=== PATIENT | male | born 1970 | race Caucasian/White ===

== ENCOUNTER 2020-06-08 14:46 | Emergency (ER) | payer OTHER ==
--- NOTE | 2020-06-08 16:05 | EDM.PDOC ---
ED HPI GENERAL MEDICAL PROBLEM - General Chief Complaint: General Stated Complaint: LIGHTHEADED/DIZZY/LETHARGIC Time Seen by Provider: 06/08/20 16:04 Source of Information: Reports: Patient History Limitations: Reports: No Limitations - History of Present Illness INITIAL COMMENTS - FREE TEXT/NARRATIVE: 50-year-old male presents to the ED in the accompaniment of his . His are working in [employer] for the summer. He states for the last week he is felt increasing fatigue but much worse today. After eating his dinner today he stood up and felt very dizzy lightheaded like he was going to pass out. No vertigo symptoms. He did have to sit down but felt very unwell and coworkers identified that he seemed to be quite white and pallid. Patient rarely sees a doctor as he is usually enjoyed good health. He is currently on no medications. 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 Denies any recent nausea vomiting or headaches. No excessive thirst or polyuria. No chest pain. He states he has had 3 COVID tests as they are free in [place] and all have been negative. States he feels very fatigued in particular in the mornings has difficulty getting up and ready for the day which was not usually the case. There is been a tremendous change in his energy levels over the last week to 10 days. He denies any fever or chills. Appetite has been fair and he feels he been taking in adequate nutrition. Onset: Gradual Onset Date: 05/29/20 Duration: Day(s):, Getting Worse Location: Reports: Generalized (Neurolysed fatigue and sense of weakness with lightheadedness today near collapse.) Quality: Reports: Other Severity: Moderate (Overwhelming fatigue) Improves with: Reports: None Worsens with: Reports: None Context: Denies: Activity, Exercise, Lifting, Sick Contact, Trauma, Other Associated Symptoms: Reports: Malaise, Weakness. 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 [No Known Home Meds] 06/08/20 [History] Past Medical History - Past Surgical History Musculoskeletal Surgical History: Reports: ORIF, Shoulder Surgery (This was done because of recurrent dislocations of the shoulder.) Social & Family History - Tobacco Use Smoking Status *Q: Never Smoker - Living Situation & Occupation Living situation: Reports: Occupation: Employed ED ROS GENERAL - Review of Systems Review Of Systems: See Below Constitutional: Reports: Malaise, Weakness, Fatigue. Denies: Fever, Chills, Decreased Appetite, Weight Loss HEENT: Reports: Glasses Respiratory: Reports: No Symptoms Cardiovascular: Reports: No Symptoms Endocrine: Reports: No Symptoms GI/Abdominal: Reports: No Symptoms : Reports: No Symptoms Musculoskeletal: Reports: Other (Usual aches and pains right shoulder low back) Neurological: Reports: Confusion ( commented today when she spoke to him on the phone that he seemed to be a bit confused or having difficulty getting out the words that he wanted to say. This is when he was feeling quite dizzy and lightheaded.), Dizziness, Weakness. Denies: Headache, Numbness, Syncope, Tingling, Tremors, Trouble Speaking, Difficulty Walking, Change in Speech, Gait Disturbance Psychiatric: Reports: No Symptoms Hematologic/Lymphatic: Reports: No Symptoms Immunologic: Reports: No Symptoms ED EXAM, GENERAL - Physical Exam Exam: See Below Exam Limited By: No Limitations General Appearance: Alert, WD/WN, No Apparent Distress, Other (States he feels better since he has been resting here. Temperature is 36.6. Heart rate was 60 and sinus respiratory was 18 BP was 148/97 with O2 sats of 98% on room air.) Eye Exam: Bilateral Eye: Normal Inspection (No blepharal pallor or scleral icterus.), PERRL Ears: Normal TMs Throat/Mouth: Normal Inspection, Normal Lips, Normal Teeth, Normal Oropharynx Head: Atraumatic, Normocephalic Neck: Normal Inspection, Supple, Non-Tender, Full Range of Motion. No: Carotid Bruit, Lymphadenopathy (L), Lymphadenopathy (R) Respiratory/Chest: No Respiratory Distress, Lungs Clear, Normal Breath Sounds, No Accessory Muscle Use, Chest Non-Tender Cardiovascular: Normal Peripheral Pulses, Regular Rate, Rhythm, No Edema, No Gallop, No JVD, No Murmur, No Rub Peripheral Pulses: 2+: Posterior Tibial (L), Posterior Tibial (R), Dorsalis Pedis (L), Dorsalis Pedis (R), 3+: Carotid (L), Carotid (R) GI/Abdominal: Normal Bowel Sounds, Soft, Non-Tender, No Organomegaly, No Abnormal Bruit, No Mass, Pelvis Stable, Other (No surgical scars.) Back Exam: Normal Inspection, Full Range of Motion. No: CVA Tenderness (L), CVA Tenderness (R) Extremities: Other (Well-healed surgical scar anterior right shoulder from [place] procedure. No active inflammation of any of his joints.) Neurological: Alert, Oriented, CN II-XII Intact, Normal Cognition Psychiatric: Normal Affect, Normal Mood Skin Exam: Warm, Dry, Intact, Normal Color, No Rash EKG INTERPRETATION EKG Date: 06/08/20 Time: 16:36 Rhythm: Other Rate (Beats/Min): 55 [place]: LAD-Left [place] Deviation (This 30 degrees) P-Wave: Present QRS: Other (There is near Q waves in leads III and aVF. Cannot rule out old inferior wall myocardial infarction.) ST-T: Other (Diffuse early repolarization pattern with no signs of ischemia.) QT: Normal EKG Interpretation Comments: Borderline ECG Course - Vital Signs Last Recorded V/S: Last Vital Signs Temp 36.6 C 06/08/20 15:04 Pulse 60 06/08/20 15:04 Resp 18 06/08/20 15:04 BP 148/97 H 06/08/20 15:04 Pulse Ox 98 06/08/20 15:04 Orthostatic Blood Pressure [ 136/89 Standing] Orthostatic Blood Pressure [ 137/63 Sitting] Orthostatic Blood Pressure [ 139/85 Supine] - Orders/Labs/Meds Orders: Active Orders 24 hr Category Date Time Status Blood Glucose Check, Bedside [RC] ONETIME Care 06/08/20 16:17 Active EKG Documentation Completion [RC] STAT Care 06/08/20 16:16 Active Orthostatic Vital Signs [RC] ASDIRECTED Care 06/08/20 16:15 Active Dextrose 5%-0.9% NaCl [Dextrose 5%-Normal Saline] 1,000 Med 06/08/20 16:15 Active ml IV ASDIRECTED Medication Orders Dextrose/Sodium Chloride (Dextrose 5%-Normal Saline) 1,000 mls @ 999 mls/hr IV ASDIRECTED JEROMY Last Admin: 06/08/20 16:31 Dose: 999 mls/hr Documented by: ALEIDA Labs: Laboratory Tests 06/08/20 06/08/20 06/08/20 Range/Units 16:17 16:21 16:21 WBC 6.53 (4.23-9.07) K/mm3 RBC 4.67 (4.63-6.08) M/mm3 Hgb 13.9 (13.7-17.5) gm/dl Hct 42.7 (40.1-51.0) % MCV 91.4 (79.0-92.2) fl MCH 29.8 (25.7-32.2) pg MCHC 32.6 (32.2-35.5) g/dl RDW Std Deviation 42.4 (35.1-43.9) fL Plt Count 241 (163-337) K/mm3 MPV 10.0 (9.4-12.3) fl Neut % (Auto) 54.9 (34.0-67.9) % Lymph % (Auto) 28.9 (21.8-53.1) % [place] % (Auto) 10.0 (5.3-12.2) % Eos % (Auto) 5.4 (0.8-7.0) Baso % (Auto) 0.5 (0.1-1.2) % Neut # (Auto) 3.59 (1.78-5.38) K/mm3 Lymph # (Auto) 1.89 (1.32-3.57) K/mm3 [place] # (Auto) 0.65 (0.30-0.82) K/mm3 Eos # (Auto) 0.35 (0.04-0.54) K/mm3 Baso # (Auto) 0.03 (0.01-0.08) K/mm3 Sodium 140 (136-145) mEq/L Potassium 4.0 (3.5-5.1) mEq/L Chloride 104 (98-107) mEq/L Carbon Dioxide 25 (21-32) mEq/L Anion Gap 15.0 (5-15) BUN 17 (7-18) mg/dL Creatinine 1.2 (0.7-1.3) mg/dL Est Cr Clr Drug Dosing 80.83 mL/min Estimated GFR (MDRD) > 60 (>60) mL/min BUN/Creatinine Ratio 14.2 (14-18) Glucose 90 (74-106) mg/dL Calcium 8.8 (8.5-10.1) mg/dL Magnesium 2.2 (1.8-2.4) mg/dl Total Bilirubin 0.4 (0.2-1.0) mg/dL AST 16 (15-37) U/L ALT 26 (16-63) U/L Alkaline Phosphatase 52 (46-116) U/L Troponin I < 0.017 (0.00-0.056) ng/mL C-Reactive Protein < 0.2 (<1.0) mg/dL NT-Pro-B Natriuret Pep (0-125) pg/mL Total Protein 6.8 (6.4-8.2) g/dl Albumin 3.6 (3.4-5.0) g/dl Globulin 3.2 gm/dL Albumin/Globulin Ratio 1.1 (1-2) TSH 3rd Generation 1.733 (0.358-3.74) uIU/mL Urine Color Light yellow (Yellow) Urine Appearance Clear (Clear) Urine pH 7.0 (5.0-8.0) Ur Specific [place] 1.015 (1.005-1.030) Urine Protein Negative (Negative) Urine Glucose (UA) Negative (Negative) Urine Ketones Negative (Negative) Urine Occult Blood Negative (Negative) Urine Nitrite Negative (Negative) Urine Bilirubin Negative (Negative) Urine Urobilinogen 0.2 (0.2-1.0) Ur Leukocyte Esterase Negative (Negative) Urine RBC 0-5 (0-5) /hpf Urine WBC 0-5 (0-5) /hpf Ur Squamous Epith Cells Not seen (0-5) /hpf Urine Bacteria Occasional (FEW) /hpf Urine Mucus Not seen (FEW) /hpf 06/08/20 Range/Units 16:21 WBC (4.23-9.07) K/mm3 RBC (4.63-6.08) M/mm3 Hgb (13.7-17.5) gm/dl Hct (40.1-51.0) % MCV (79.0-92.2) fl MCH (25.7-32.2) pg MCHC (32.2-35.5) g/dl RDW Std Deviation (35.1-43.9) fL Plt Count (163-337) K/mm3 MPV (9.4-12.3) fl Neut % (Auto) (34.0-67.9) % Lymph % (Auto) (21.8-53.1) % [place] % (Auto) (5.3-12.2) % Eos % (Auto) (0.8-7.0) Baso % (Auto) (0.1-1.2) % Neut # (Auto) (1.78-5.38) K/mm3 Lymph # (Auto) (1.32-3.57) K/mm3 [place] # (Auto) (0.30-0.82) K/mm3 Eos # (Auto) (0.04-0.54) K/mm3 Baso # (Auto) (0.01-0.08) K/mm3 Sodium (136-145) mEq/L Potassium (3.5-5.1) mEq/L Chloride (98-107) mEq/L Carbon Dioxide (21-32) mEq/L Anion Gap (5-15) BUN (7-18) mg/dL Creatinine (0.7-1.3) mg/dL Est Cr Clr Drug Dosing mL/min Estimated GFR (MDRD) (>60) mL/min BUN/Creatinine Ratio (14-18) Glucose (74-106) mg/dL Calcium (8.5-10.1) mg/dL Magnesium (1.8-2.4) mg/dl Total Bilirubin (0.2-1.0) mg/dL AST (15-37) U/L ALT (16-63) U/L Alkaline Phosphatase (46-116) U/L Troponin I (0.00-0.056) ng/mL C-Reactive Protein (<1.0) mg/dL NT-Pro-B Natriuret Pep 15 (0-125) pg/mL Total Protein (6.4-8.2) g/dl Albumin (3.4-5.0) g/dl Globulin gm/dL Albumin/Globulin Ratio (1-2) TSH 3rd Generation (0.358-3.74) uIU/mL Urine Color (Yellow) Urine Appearance (Clear) Urine pH (5.0-8.0) Ur Specific [place] (1.005-1.030) Urine Protein (Negative) Urine Glucose (UA) (Negative) Urine Ketones (Negative) Urine Occult Blood (Negative) Urine Nitrite (Negative) Urine Bilirubin (Negative) Urine Urobilinogen (0.2-1.0) Ur Leukocyte Esterase (Negative) Urine RBC (0-5) /hpf Urine WBC (0-5) /hpf Ur Squamous Epith Cells (0-5) /hpf Urine Bacteria (FEW) /hpf Urine Mucus (FEW) /hpf Meds: Medications Generic Name Dose Route Start Last Admin Trade Name Freq PRN Reason Stop Dose Admin Dextrose/Sodium Chloride 1,000 mls @ 999 mls/hr 06/08/20 16:15 06/08/20 16:31 Dextrose 5%-Normal Saline IV 999 mls/hr ASDIRECTED JEROMY Administration - Radiology Interpretation Free Text/Narrative:: 50-year-old male presents to the ED feeling unwell. He states at lunchtime just about fainted. He stood up and felt very lightheaded and dizzy and like he was going to collapse and had to sit down. Coworkers commented they look pallid and unwell. He states he is not necessarily felt well for about 10 days with increased fatigue in particular noted in the mornings difficulty getting out of bed to go to work etc. He states he just feels overwhelmingly fatigued. 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 He usually quite active by riding bicycles outside through the passenger door etc. He is acclimatized to the weather. Examination did not yield any positive findings. Plan chest x-ray 1 view. ECG. Routine labs including thyroid function. He will have a bedside glucose done. Orthostatic BPs to be done. IV will be D5 normal saline at open. - Re-Assessments/Exams Free Text/Narrative Re-Assessment/Exam: 06/08/20 17:02 Static BP show blood pressure of 139/85 supine with a heart rate of 60. Sitting was 1 3763 with a heart rate of 87 and standing was 136/89 with heart rate of 62. Therefore no signs of orthostasis. 06/08/20 17:39 x-ray reveals mild cardiomegaly. Lungs are grossly clear with no pleural effusions or infiltrates. 06/08/20 17:41 White count is normal at 6.53. Auto differential shows 55% neutrophils. Hemoglobin is 13.9 with hematocrit of 42.7. Platelet count is 241,000. Chemistry shows sodium of 140 with a potassium of 4.0. Chloride 104 with a bicarb of 25. Anion gap is 15.0 BUN is 17 with a creatinine of 1.2. Glucose is 90 with a calcium of 8.8 magnesium is 2.2 liver function is normal. Troponin I is less than 0.017 C-reactive protein is less than 0.2. BNP is 15 total protein 6.8 with an albumin fraction of 3.6. TSH is normal at 1.733. Urine is clear with no signs of infection or proteinuria. Departure - Departure Time of Disposition: 17:51 Disposition: Home, Self-Care 01 Condition: Fair Clinical Impression: Exhaustion - Discharge Information *PRESCRIPTION DRUG MONITORING PROGRAM REVIEWED*: Not Applicable *COPY OF PRESCRIPTION DRUG MONITORING REPORT IN PATIENT NADIA: Not Applicable Referrals: PCP,None [Primary Care Provider] - Forms: ED Department Discharge, ED Return to Work/School Form Additional Instructions: Evaluation in the emergency room today in regards to near syncopal event that occurred after lunch today to the point that you nearly passed out. No definitive reason for this was identified during your stay in the ED. There were no irregular heartbeat's or arrhythmias. Blood pressure remained stable. Lab test revealed that you were non-volume depleted and no abnormalities were detected in terms of heart function, liver function, kidney function or thyroid function that would account for overwhelming fatigue. I have some concerns that the fatigue may be secondary to a lot of extra stress in the workplace as you alluded to. It is my suggestion that you take a couple of days off of work and the weekend to basically recharge her batteries and rest. Aloe up with personal care physician if any further problems occur. Sepsis Event Note (ED) - Evaluation Sepsis Screening Result: No Definite Risk - Focused Exam Vital Signs: Vital Signs Temp Pulse Resp BP Pulse Ox 06/08/20 15:04 36.6 C 60 18 148/97 H 98 - My Orders Last 24 Hours: My Active Orders 06/08/20 16:15 Orthostatic Vital Signs [RC] ASDIRECTED Dextrose 5%-0.9% NaCl [Dextrose 5%-Normal Saline] 1,000 ml IV ASDIRECTED 06/08/20 16:16 EKG Documentation Completion [RC] STAT 06/08/20 16:17 Blood Glucose Check, Bedside [RC] ONETIME - Assessment/Plan Last 24 Hours: My Active Orders 06/08/20 16:15 Orthostatic Vital Signs [RC] ASDIRECTED Dextrose 5%-0.9% NaCl [Dextrose 5%-Normal Saline] 1,000 ml IV ASDIRECTED 06/08/20 16:16 EKG Documentation Completion [RC] STAT 06/08/20 16:17 Blood Glucose Check, Bedside [RC] ONETIME
[2020-06-08] MEDS ORDERED: Dextrose 5%-0.9% NaCl 1,000 ML IV SCH (16:15)
--- NOTE | 2020-06-08 16:59 | CR ---
Chest: Portable view of the chest was obtained. Comparison: No prior chest imaging is available. Heart is slightly enlarged. Upper mediastinum is normal. Lungs are clear with no acute parenchymal change. Bony structures are grossly intact. Impression: 1. Mild cardiomegaly. 2. Nothing acute is otherwise seen on portable chest x-ray. Diagnostic code #2 This report was dictated in MDT
== END 2020-06-08 18:14 | disposition home or self-care (01) ==
LOC: JD.ED 14:46
DX: R53.83 Other fatigue (principal); R42 Dizziness and giddiness; R53.1 Weakness
CPT/HCPCS: 36415; 71045; 80053; 81001; 82962; 83735; 83880; 84443; 84484; 85025; 86140; 93005; 96360; 96361; 99284; J7042; 93010; 99283

== ENCOUNTER 2021-01-09 12:29 | Emergency (ER) | payer OTHER ==
[2021-01-09] MEDS ORDERED: Acetaminophen 325 MG Tab PO ONE (13:01)
--- NOTE | 2021-01-09 14:00 | CR ---
Right clavicle: 2 views of the right clavicle were obtained. Comparison: Prior shoulder study of 06/08/20 showing the clavicle. Acute clavicle fracture is noted. There is displacement and foreshortening being seen. Prior right shoulder surgery is noted. 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 Impression: 1. Acute clavicle fracture with displacement and foreshortening. 2. Other findings as noted above which are nonacute. Diagnostic code #3
--- NOTE | 2021-01-09 14:00 | CR ---
Pelvis and right hip: AP view of the pelvis was obtained as well as AP and frog-leg lateral views of the right hip. Moderate narrowing is seen of the superior right hip. Joint space within the left hip is preserved. Sacroiliac joints appear within normal limits. Slight degenerative change is noted within the visualized lower lumbar spine. No acute fracture, dislocation or other bony abnormality is appreciated. Impression: 1. Joint space narrowing within the superior right hip. Mild degenerative change within the visualized lower lumbar spine. 2. No additional abnormality is seen on AP pelvis or 2 view right hip exam. Diagnostic code #2
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
== END 2021-01-09 14:40 | disposition home or self-care (01) ==
LOC: JD.ED 12:29
DX: S42.021A Displaced fracture of shaft of right clavicle, initial encounter for closed fracture (principal); S06.0X0A Concussion without loss of consciousness, initial encounter; S70.01XA Contusion of right hip, initial encounter; Z72.0 Tobacco use; V18.4XXA Pedal cycle driver injured in noncollision transport accident in traffic accident, initial encounter
CPT/HCPCS: 73000; 73502; 99283; A9270

== ENCOUNTER → 2021-01-17 | Day surgery (SDC) | payer OTHER ==
[~2021-01-17] MED LIST: Acetaminophen/HYDROcodone 325-5 MG Tab PO PRN; Bupivacaine 0.25% 10 ML SDV ONE; Citric Acid/Sodium Citrate Solution 30 ML Cup ONE; Dexamethasone 4 MG/ML 5 ML MDV ONE; Dexmedetomidine 200 MCG/2 ML SDV ONE; Glycopyrrolate 0.2 MG/ML SDV ONE; HYDROmorphone 0.5 MG/0.5 ML Syringe IVPUSH PRN; Ketorolac 30 MG/ML SDV IM ONE; Ketorolac 30 MG/ML SDV IVPUSH ONE; Lactated Ringers 1,000 ML IV SCH; Lidocaine 1% 2 ML ONE; Lidocaine 1% 4 ML ONE; Lidocaine 1%/Sod Bicarbonate in NS 8.4% 1 ML Syringe IDERM PRN; Midazolam 1 MG/ML 2 ML SDV ONE; Ondansetron 4 MG/2 ML SDV ONE; Propofol 200 MG/20 ML SDV ONE; Ropivacaine 0.5% 5 MG/ML 30 ML SDV ONE; Sodium Chloride 0.9% 10 ML Syringe FLUSH PRN; ceFAZolin 1 GM Vial ONE; fentaNYL 100 MCG/2 ML SDV IVPUSH PRN; fentaNYL 100 MCG/2 ML SDV ONE
--- NOTE | 2021-01-17 11:03 | PCM.PREANE ---
Preanesthetic Assessment - Procedure Proposed Procedure: Right clavicle ORIF - Anesthesia/Transfusion/Family Hx Anesthesia History: Prior Anesthesia Without Reaction - Review of Systems General: No Symptoms Pulmonary: No Symptoms Cardiovascular: No Symptoms Gastrointestinal: No Symptoms Neurological: No Symptoms Other: Reports: None - Physical Assessment NPO Status Date: 01/16/21 NPO Status Time: 22:00 Vital Signs: 146/96 70 16 RR 98% Height: 1.85 m Weight: 106.6 kg ASA Class: 2 Mental Status: Alert & Oriented x3 Airway Class: Mallampati = 2 Dentition: Reports: Normal Dentition Thyro-Mental Finger Breadths: 3 Mouth Opening Finger Breadths: 3 ROM/Head Extension: Full Lungs: Clear to Auscultation, Normal Respiratory Effort Cardiovascular: Regular Rate, Regular Rhythm - Lab Values: Laboratory Last Values MRSA (PCR) Negative 01/11/21 14:56 - Allergies Allergies/Adverse Reactions: Allergies Allergy/AdvReac Type Severity Reaction Status Date / Time No Known Allergies Allergy Verified 01/14/21 10:38 - Acknowledgements Anesthesia Type Planned: General Anesthesia, Regional Block (cervical plexus/clavipectoral), MAC Pt an Appropriate Candidate for the Planned Anesthesia: Yes Alternatives and Risks of Anesthesia Discussed w Pt/Guardian: Yes Pt/Guardian Understands and Agrees with Anesthesia Plan: Yes PreAnesthesia Questionnaire Gastrointestinal History: Reports: GERD Endocrine/Metabolic History: Reports: Obesity/BMI 30+ - Past Surgical History Musculoskeletal Surgical History: Reports: ORIF, Shoulder Surgery - SUBSTANCE USE Tobacco Use Status *Q: Light Tobacco User Tobacco Use Within Last Twelve Months: Smokeless Tobacco Days Per Week of Alcohol Use: 7 Number of Drinks Per Day: 2 Total Drinks Per Week: 14 Recreational Drug Use History: No - HOME MEDS Home Medications: Home Meds Famotidine 20 mg PO DAILY 01/14/21 [History] Acetaminophen/HYDROcodone [[place] 325-5 MG] 1 - 2 tab PO Q6H PRN #20 tablet 01/17/21 [Rx] - CURRENT (IN HOUSE) MEDS Current Meds: Current Medications Lactated Ringer's (Ringers, Lactated) 1,000 mls @ 125 mls/hr IV ASDIRECTED JEROMY Stop: 01/17/21 23:00 Lidocaine/Sodium Bicarbonate (Buffered Lidocaine 1% In Ns 8.4%) 0.25 ml IDERM ONETIME PRN PRN Reason: Prior to IV Start Stop: 01/17/21 18:00 Sodium Chloride (Saline Flush) 10 ml FLUSH ASDIRECTED PRN PRN Reason: Keep Vein Open Stop: 01/17/21 18:00
--- NOTE | 2021-01-17 12:49 | PCM.PRNOTE ---
- Free Text/Narrative Note: Postoperative regional pain control requested by surgeon. Pre-op Dx: Right Clavicle fracture Surgical procedure: Right Clavicle fracture ORIF Procedure: Rt superficial cervical plexus block + distal/proximal right clavipectoral fascia injection with U/S guidance Requesting physician: Dr. Whaley Ct Risks and benefits discussed with the patient preoperatively including infection, bleeding, incomplete or failed block, possible nerve damage, local anesthetic toxicity. Chart reviewed, VS stable. Permit signed. Patient in preoperative room 2, stable , alert and awake. Time out performed. Oxygen 2L via NC. Right side of the neck, shoulder and clavicle were prepped with Chloraprep x 1 and allowed to dry. Midazolam IV 6 mg given in incremental boluses. Under aseptic technique, the brachial plexus and sternocleidomastoid muscle was identified at C5 level under ultrasound prior to needle insertion. Local infiltration with 2mls of 1% Lidocaine. 2" Stimuplex needle #22 G was inserted under US guidance. Under direct visualization of needle tip the injection into the facial plane between anterior scalene and sternocleidomastoid muscle was performed. Local anesthetic injected: 0.5% Ropivacaine with 1:200k epinephrine 9 mls with 3 mg of Dexamethasone and 20 mcg of Dexmedetomidine in divided doses, maintaining negative aspiration. Next, the probe was repositioned on top of the right clavicle and pectoralis major, subclavius and intercostal muscle layers were identified adjacent to the clavicle. Local infiltration with 2mls of 1% Lidocaine. Under direct ultrasound guidance 0.5% Ropivacaine with 1:200k epinephrine 9 mls with 3 mg of Dexamethasone and 20 mcg of Dexmedetomidine in divided doses, maintaining negative aspiration were injected under clavipectoral fascia medial to the fracture. Then the probe was repositioned to visualize the distal end of the clavicle, lateral to the fracture. Local infiltration with 2mls of 1% Lidocaine. Under direct ultrasound guidance 0.5% Ropivacaine with 1:200k epinephrine 9 mls with 3 mg of Dexamethasone and 20 mcg of Dexmedetomidine in divided doses, maintaining negative aspiration were injected under clavipectoral fascia lateral to the fracture. No local anesthetic toxicity was noted. Patient is awake, stable and tolerated the procedure well. Please see the attached U/S images Time: 12:10 - 12:25
--- NOTE | 2021-01-17 15:37 | CR ---
Right clavicle: 2 views of the right clavicle were obtained. Study was obtained utilizing fluoroscopy study in the OR. Comparison: Prior right clavicle exam of 01/09/21. Study shows plate and screws affixing the previous clavicular fracture. Alignment is anatomic. Stable screw is noted within the shoulder. Fluoroscopy time given is 4.1 seconds. Impression: 1. Procedural study as noted above. Diagnostic code #2
--- NOTE | 2021-01-17 15:37 | PCM48HPAN ---
Post Anesthesia Note - EVALUATION WITHIN 48HRS OF ANESTHETIC Vital Signs in Normal Range: Yes Patient Participated in Evaluation: Yes Respiratory Function Stable: Yes Airway Patent: Yes Cardiovascular Function Stable: Yes Hydration Status Stable: Yes Pain Control Satisfactory: Yes Nausea and Vomiting Control Satisfactory: Yes Mental Status Recovered: Yes Vital Signs: Last Vital Signs Temp 98.4 F 01/17/21 15:06 Pulse 80 01/17/21 15:06 Resp 15 01/17/21 15:06 BP 144/66 H 01/17/21 15:06 Pulse Ox 96 01/17/21 15:06
--- NOTE | 2021-01-17 16:07 | PCM48HPAN ---
Post Anesthesia Note - EVALUATION WITHIN 48HRS OF ANESTHETIC Vital Signs in Normal Range: Yes Patient Participated in Evaluation: Yes Respiratory Function Stable: Yes Airway Patent: Yes Cardiovascular Function Stable: Yes Hydration Status Stable: Yes Pain Control Satisfactory: Yes (Pain rated 07/29) Nausea and Vomiting Control Satisfactory: Yes Mental Status Recovered: Yes Vital Signs: Last Vital Signs Temp 36.9 C 01/17/21 15:06 Pulse 74 01/17/21 15:30 Resp 16 01/17/21 15:30 BP 144/74 H 01/17/21 15:30 Pulse Ox 96 01/17/21 15:30 - COMMENTS/OBSERVATIONS Free Text/Narrative:: PACU nurse received additional pain medication orders. Patient reassessed and pain improvement noted 06/28. Plan to continue to assess and order received to administer toradol 30mg one time dose.
--- NOTE | 2021-01-17 16:25 | PCM48HPAN ---
Post Anesthesia Note - EVALUATION WITHIN 48HRS OF ANESTHETIC Vital Signs in Normal Range: Yes Patient Participated in Evaluation: Yes Respiratory Function Stable: Yes Airway Patent: Yes Cardiovascular Function Stable: Yes Hydration Status Stable: Yes Pain Control Satisfactory: Yes (3/4 pain control.) Nausea and Vomiting Control Satisfactory: Yes Mental Status Recovered: Yes Vital Signs: Last Vital Signs Temp 36.9 C 01/17/21 15:06 Pulse 71 01/17/21 16:00 Resp 17 01/17/21 16:00 BP 174/77 H 01/17/21 16:00 Pulse Ox 98 01/17/21 16:00
--- NOTE | 2021-01-17 16:44 | PCM.OPNOTE ---
- General Post-Op/Procedure Note Date of Surgery/Procedure: 01/17/21 Operative Procedure(s): open reduction internal fixation right clavicle fracture Pre Op Diagnosis: right midshaft clavicle fracture Post-Op Diagnosis: Same Anesthesia Technique: MAC, Regional Block Primary Surgeon: Judd Sue Anesthesia Provider: Pankaj Richardson Flagsetter: Gali Diana EBL in mLs: 10 Complications: None Condition: Good
--- NOTE | 2021-01-24 14:21 | OR ---
DATE OF OPERATION: 01/17/2021 SURGEON: Judd Sue MD OPERATION PERFORMED: Open reduction internal fixation of right clavicle fracture. PREOPERATIVE DIAGNOSIS: Right midshaft clavicle fracture. POSTOPERATIVE DIAGNOSIS: Right midshaft clavicle fracture. ANESTHESIA: MAC with regional block. ANESTHESIA PROVIDER: Mary Nava. EMERGENCY DEPARTMENT MANAGER: Gali Diana PA-C. ESTIMATED BLOOD LOSS: 10 mL. COMPLICATIONS: None. CONDITION: Stable. DESCRIPTION OF PROCEDURE: The patient was identified in the preoperative holding area. Proper site was marked, identified by surgeon. The patient was taken back to the operative theater where after adequate anesthesia, he was placed on a radiolucent table supine. He was placed in a reverse Trendelenburg position. Right upper extremity was then sterilely prepped and draped in the usual sterile fashion. OR time-out was performed. The patient received 2 g of IV Ancef. Standard incision was made anteriorly to the right clavicle. This was taken down to the fracture site. Fracture site was curetted and rongeured of all fracture hematoma. Adequate saline was irrigated through the fracture site. A point-to- point reduction clamp was then used for reduction of the clavicle. A 3.5 cortical screw was then lagged across the fracture site and lagged by technique. Next, a Anthony 7-hole superior locking clavicle plate was placed under direct C- arm fluoroscopy, was found to be in adequate positioning. Nonlocking screws were placed both proximally and distally to the fracture site and then 2 locking screws were placed both proximally and distally to the fracture site. It was noted to have adequate buddhist of the clavicle length as well as anatomic reduction on AP and superior view of the right clavicle. Adequate saline was irrigated through the wound. 0 Vicryl was used for closure at the platysma level, 2-0 Vicryl was used subcutaneously, and Prineo was used for closure of the skin. The patient was placed in a sterile soft dressing and a sling and sent to the PACU in stable condition. MMODAL /[id number]
== END | disposition home or self-care (01) ==
LOC: JD.SDS 10:20
PROVIDERS: ATTEND Orthopaedic Surgery
DX: S42.021A Displaced fracture of shaft of right clavicle, initial encounter for closed fracture (principal); F17.290 Nicotine dependence, other tobacco product, uncomplicated; E66.9 Obesity, unspecified; Z79.899 Other long term (current) drug therapy; Z98.890 Other specified postprocedural states; Z68.31 Body mass index [BMI] 31.0-31.9, adult
CPT/HCPCS: 23515; 76000; 87641; A9270; C1713; J0690; J1100; J1885; J2250; J2405; J2704; J2795; J3010; J3490; J7120; 00450; 64415